=== PATIENT | male | born 1975 | race Caucasian/White ===

== ENCOUNTER 2021-05-16 10:36 | Emergency (ER) | payer MEDICAID, SELFPAY ==
[2021-05-16 11:37] VITALS: BP 133/80; PULSE 57; RESP 18; TEMP 35.5; O2SAT 100; BMI 25.8
--- NOTE | 2021-05-16 12:22 | ED.GENADULT ---
HPI - General Adult General Chief complaint: General Medical Stated complaint: seeking methadone Time Seen by Provider: 05/16/21 12:08 Source: patient History of Present Illness HPI narrative: Patient with a history of opioid use disorder who has been on methadone maintenance for the past 6 months, 30 mg daily, presents requesting a dose of methadone. He had been in [facility] for the past 6 months and was to. Initially planning on staying in the [facility] area but has relocated to [facility]. He is living with a sister. But he did not set up a methadone treatment program prior to moving here on Sunday. His last dose was Sunday. He used heroin via sniffing yesterday as he was feeling significant withdrawal symptoms. He states currently feels only mild symptoms. Some body aches. No nausea. No other significant complaints. Other history significant for hepatitis C. he is trying to get into the [facility] for primary care and medication assisted treatment Related Data Allergies Allergy/AdvReac Type Severity Reaction Status Date / Time Penicillins [PENICILLINS] Allergy Intermediate SWELLING Verified 05/16/21 11:37 Review of Systems Constitutional: Comments: Chills without fever Cardiovascular: Comments: No chest pain Respiratory: Comments: No dyspnea or cough Gastrointestinal: Comments: No nausea vomiting Musculoskeletal: Comments: Some muscle aches PMFSH Past Medical History Medical History (Updated 05/16/21 @ 12:29 by Claudio Umanzor MD) Depression Social History Social History Alcohol intake: never Smoked in Last 30 Days: No Use of substances other than those prescribed or required for medical reasons: No Advance Directives: No Advance Directives Information Provided: No Physical Exam Vital Signs: Vital Signs: Last Vital Signs Temp 96 F L 05/16/21 11:37 Pulse 57 05/16/21 11:37 Resp 18 05/16/21 11:37 BP 133/80 05/16/21 11:37 Pulse Ox 100 05/16/21 11:37 Body Mass Index 25.8 Const: Other: Awake and alert in no acute distress Eyes: Other: Pupils equal round reactive to light, not pinpoint Resp: Other: Clear and equal bilaterally without wheezes rales or rhonchi Cardio: Other: Regular rate and rhythm without murmurs rubs or gallops GI: Other: Soft nontender nondistended Skin: Other: Warm pink and dry without piloerection Neuro: Other: No obvious neuro deficits. Ambulates without difficulty Course Course Course Narrative: Patient with a history of opioid use disorder on medication assisted treatment without a dose for the past 48 hours. Minimal withdrawal symptoms at the moment. Unable to verify his treatment dose, but at 30 mg, it is safe to treat here in the emergency department with follow-up navigation help with the manager of disaster recovery. Discharge Plan Discharge Clinical Impression: Opioid use disorder Patient Disposition: Home, Self-Care Instructions: Opioid Withdrawal (ED), Opioid Use Disorder (ED) Additional Instructions: Be sure to follow-up as scheduled tomorrow
--- NOTE | 2021-05-16 13:12 | MHC.RECOVSUP ---
Recovery Support note: Patient is a 46 year old Burmese speaking male who presented to [facility] ED seeking methadone. Patient reports he recently moved to the area and doesn't have a clinic to go to at this time. Patient states he would like to continue methadone treatment and that he would like to be referred to a local [facility]. Patient accepted information on [facility] in [place]. Recovery Support Team will make this clinic aware of patient. Patient instructed to present to the clinic tomorrow morning at 600 with a last dose letter. Patient acknowledged. This proposal lead writer will provide patient with a last dose letter after he is medicated. Confirmation form completed and sent to pharmacy. Discussed case with Recovery Support Team.
[2021-05-16] MEDS: methADONE HCl 20 MG/2 ML ORAL.CONC 30 MG PO (13:37)
== END 2021-05-16 14:42 | disposition home or self-care (01) ==
LOC: HO.ED 12:54
PROVIDERS: Emergency Provider Emergency Medicine
DX: F11.20 Opioid dependence, uncomplicated (principal)
CPT/HCPCS: 99283; 99284

== ENCOUNTER 2022-04-09 14:53 | Emergency (ER) | payer MEDICAID, SELFPAY ==
[2022-04-09] VITALS (15 sets, daily range): BP systolic 118–222; BP diastolic 69–124; PULSE 76–132; RESP 16–25; O2SAT 95–100; BMI 22.1; BMI 27.6
--- NOTE | ~2022-04-09 | CT_ITS ---
CT head/brain wo IV con CLINICAL INFORMATION: Reason for Exam s/p trauma COMPARISON: No prior CT scan available for comparison. TECHNIQUE: Department standard protocol. This CT examination was performed using dose optimization techniques as appropriate, variously including the following: *Automated exposure control *Adjustment of mA and/or kV according to patient size (this includes techniques or standardized protocols for targeted exams where dose is matched to indication/reason for exam; i.e. extremities or head) *Use of iterative reconstruction technique DLP: 399 mGy-cm FINDINGS: CEREBRAL HEMISPHERES: There is a right parieto-occipital intraparenchymal and subarachnoid hemorrhage. Mild focal mass effect. There are few other foci of small subarachnoid hemorrhage also noticed in the left parietal and right parietal. BRAIN PARENCHYMA: Normal agudelo-white matter differentiation. SUBDURAL SPACE: No bleed. BASAL GANGLIA AND PINEAL GLAND: Unremarkable VENTRICLES: Symmetric and normal in size. CEREBELLUM AND BRAINSTEM: No space-occupying mass, hemorrhage or acute infarct. CEREBELLOPONTINE ANGLES: No lesion found. ORBITS: No intraorbital mass. VESSELS: Unremarkable SKULL BASE: Unremarkable INCLUDED SINUSES AT SKULL BASE: Clear SKULL AND SKIN: Large right extracalvarial subcutaneous hematoma 15 x 2 cm extending along the right frontoparietal occipital skull, no associated skull fracture. CT/CT head/brain wo IV con IMPRESSION: 1. There is intracranial intra-axial 1.5 cm intraparenchymal hemorrhage right parieto-occipital region. Mild focal mass effect. 2. There are multiple areas of subarachnoid hemorrhage right parieto-occipital, anterior parietal, anterior left parietal. 3. Extracalvarial large subcutaneous hematoma along the right frontoparietal occipital 15 x 1.5 cm. Refer still images. This critical result was discussed with Autumn resendiz by telephone at 04/09/2022 3:59 PM and it was ascertained that the content and urgency of the report was understood at the time of direct communication.
--- NOTE | ~2022-04-09 | CT_ITS ---
EXAMINATION: CT CERVICAL SPINE CLINICAL INFORMATION: Reason for Exam s/p trauma COMPARISON: No prior CT available, TECHNIQUE: Computed axial sagittal and coronal images acquired using department's standard protocol. This CT examination was performed using dose optimization techniques as appropriate, variously including the following: *Automated exposure control *Adjustment of mA and/or kV according to patient size (this includes techniques or standardized protocols for targeted exams where dose is matched to indication/reason for exam; i.e. extremities or head) *Use of iterative reconstruction technique CONTRAST: None DLP: 400 mGy-cm FINDINGS: SKULL BASE: Visualized structures at skull base are normal, Included facial sinuses are clear, there is endotracheal tube in place. CERVICAL VERTEBRAE: Seven cervical vertebrae identified maintaining proper height and alignment, DISCS: C1-C2: There is no CT evidence of significant osseous narrowing of the central canal or neural foramen. C2-C3: There is no CT evidence of significant osseous narrowing of the central canal or neural foramen. C3-C4: There is no CT evidence of significant osseous narrowing of the central canal or neural foramen. C4-C5: There is no CT evidence of significant osseous narrowing of the central canal or neural foramen. C5-C6: There is no CT evidence of significant osseous narrowing of the central canal or neural foramen. C6-C7: There is no CT evidence of significant osseous narrowing of the central canal or neural foramen. C7-T1: There is no CT evidence of significant osseous narrowing of the central canal or neural foramen. PARAVERTEBRAL SOFT TISSUE: Paravertebral soft tissues unremarkable. CT/CT cervical spine wo IV con IMPRESSION: No CT evidence of cervical spine fracture or injury. Endotracheal tube in place.
--- NOTE | ~2022-04-09 | CT_ITS ---
EXAMINATION: CT CHEST, ABDOMEN AND PELVIS WITHOUT CONTRAST CLINICAL INFORMATION: Status post trauma with pain COMPARISON: None TECHNIQUE: Multidetector volumetric imaging was performed from the thoracic inlet through the pubic symphysis. Sagittal and coronal reformatted images were obtained on the technologist's workstation. Axial MIP volume rendering provided. This CT examination was performed using dose optimization techniques as appropriate, variously including the following: *Automated exposure control *Adjustment of mA and/or kV according to patient size (this includes techniques or standardized protocols for targeted exams where dose is matched to indication/reason for exam; i.e. extremities or head) *Use of iterative reconstruction technique DLP: 1615 mGy-cm FINDINGS: CHEST: Lungs: Multiple small pulmonary nodules throughout the right lung and left lower lobe, also 6 mm size. Calcified granuloma in the posterior right lower lobe as well. Mild dependent bibasilar atelectasis. Mild upper lung predominant centrilobular and paraseptal emphysema. No pneumothorax. Endotracheal tube is in place. Foamy secretions or aspirated debris in the trachea and left mainstem bronchus. Mediastinum: No cardiomegaly or pericardial effusion. Normal caliber thoracic aorta. No mediastinal hematoma. Nondilated central pulmonary trunk. No mediastinal or hilar lymphadenopathy. Pericardium/Pleura: There is no significant effusion. No pleural mass or thickening. Chest Wall/Axilla: Unremarkable. ABDOMEN/PELVIS: Liver, Gallbladder, Biliary Tree: The liver is normal in size, shape, and attenuation. No focal hepatic lesion or biliary ductal dilatation is present. Status post cholecystectomy. Pancreas: Unremarkable. Spleen: Unremarkable. Adrenal Glands: Unremarkable. Kidneys and Ureters: Punctate 2 mm nonobstructing right midpole renal calculus. No hydronephrosis. No renal lesion. No perinephric stranding or collection. Bladder: Unremarkable. Gastrointestinal Tract: The small and large bowel are unremarkable. The appendix is unremarkable. Ascites or free air. Abdominal Wall: Possible small fat-containing inguinal hernias. Lymphovascular Structures: Lymph nodes: Borderline enlarged portacaval lymph node measuring 0.9 cm in short axis, nonspecific. No lymphadenopathy by size criteria Vascular: Normal caliber abdominal aorta. Mild atherosclerotic vascular calcifications. No retroperitoneal hematoma. Pelvic Viscera: Unremarkable. OSSEOUS STRUCTURES: No acute fracture. No traumatic subluxation the thoracolumbar spine. No suspicious osseous lesion. CT/CT abdomen pelvis wo IV con IMPRESSION: 1. No acute injury identified in the chest, abdomen, or pelvis allowing for lack of intravenous contrast. 2. No intra-abdominal free air or free fluid. 3. No acute fracture identified. 4. Multiple small sub-6 mm bilateral pulmonary nodules. If the patient is high risk for primary pulmonary malignancy, suggest optional low-dose chest CT follow-up in 12 months. If low risk, no further follow-up is required per [employer] guidelines 2017.
[2022-04-09] MEDS: Rocuronium Bromide 50 MG/5 ML VIAL IVPUSH (15:02)
--- NOTE | 2022-04-09 15:11 | PC.NURSE ---
call out to [facility] transfer line @0524 regarding transfer
[2022-04-09] MEDS: Midazolam HCl/PF 2 MG/2 ML VIAL IVPUSH ×4 (15:12→16:59)
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
[2022-04-09] MEDS: Labetalol HCL 100 MG/20 ML VIAL 20 MG IVPUSH (15:13)
[2022-04-09] MEDS: 0.9 % Sodium Chloride 1,000 ML 999 ML IV (15:14)
[2022-04-09 15:17] LABS: Glucose, Whole Blood 183 mg/dL (60-115)
--- NOTE | 2022-04-09 15:19 | PC.NURSE ---
patient going for CT at this time. plan for transfer to [facility]
[2022-04-09] MEDS: levETIRAcetam in NaCl (iso-os) 1,000 MG/100 ML PIGGYBACK 400 MG IV (15:35)
[2022-04-09] MEDS: MannitoL 12.5 GM/50 ML VIAL IV (15:44)
--- NOTE | 2022-04-09 15:46 | PC.NURSE ---
call out to [facility] @[id number] regarding ALS transport to [facility]. Spoke to SHANNA who was able to pass the call to [facility]. [facility] will be here within 40 minutes for ALS transfer
[2022-04-09] MEDS: niCARdipine HCL 25 MG in 0.9 % Sodium Chloride 250 ML 52 MG IVCONT (16:09)
[2022-04-09] MEDS: propofoL 1,000 MG/100 ML VIAL 15.3 MG IVCONT (16:13)
[2022-04-09 16:28] LABS: Basophils Absolute Auto 0.1 X10*3/uL (0.0-0.2); Basophils Percent Auto 0.4 % (0-2); Eosinophils Absolute Auto 0.1 X10*3/uL (0.0-0.4); Eosinophils Percent Auto 0.3 % (0-4); Hematocrit 38.7 % (42.0-52.0); Hemoglobin 12.7 g/dl (14.0-18.0); Imm Gran Abs Auto 0.09 X10*3/uL (0.00-0.03); Imm Gran Pct Auto 0.5 % (0.0-0.4); Lymphocytes Absolute Auto 1.2 X10*3/uL (1.2-4.9); Lymphocytes Percent Auto 6.5 % (20-40); MANUAL DIFF FLAG NO; Mean Corpuscular HGB Conc 32.8 g/dl (31.0-36.0); Mean Corpuscular Hemoglobin 29.5 pg (27.0-33.0); Mean Platelet Volume 12.4 fL (9.4-12.4); Monocytes Percent Auto 5.5 % (2-11); Neutrophils Absolute Auto 16.2 x10*3/uL (2.0-8.3); Neutrophils Percent Auto 86.8 % (45-73); Platelet Count 180 X10*3/uL (160-400); Red Cell Distribution Width 13.8 % (11.0-16.0); White Blood Count 18.7 X10*3/uL (4.8-10.8)
[2022-04-09 16:37] LABS: INTERNATIONAL NORM RATIO 1.1 (0.9-1.1); Prothrombin Time 12.1 SEC (10.0-13.1)
[2022-04-09 16:40] LABS: Partial Thromboplastin Time 28.6 SEC (26.0-36.4)
[2022-04-09 16:46] LABS: Alanine Aminotransferase 34 U/L (0-40); Albumin Level 3.5 g/dL (3.5-5.0); Alkaline Phosphatase 57 U/L (39-117); Anion Gap 20 (12-20); Aspartate Amino Transferase 31 U/L (5-37); Bilirubin Total 0.3 mg/dL (0.0-1.0); Blood Urea Nitrogen 16 mg/dL (9-16); Carbon Dioxide 18 mmol/L (22-29); Chloride 102 mmol/L (96-108); Estimated Glomerular Filt Rate > 60; Glucose Random 184 mg/dL (60-115); Potassium 5.1 mmol/L (3.3-5.1); Sodium 135 mmol/L (135-145); Total Protein 6.3 g/dL (6.5-8.0)
[2022-04-09 17:01] LABS: COVID-19 Test Negative (Negative); IDNOW Serial# 9DB6401D
--- NOTE | 2022-04-09 17:11 | PC.NURSE ---
RN-RN report called into [facility]
--- NOTE | 2022-04-09 17:38 | PC.NURSE ---
called the pt's sister to see if by any chance she could package pick up the pt's belongings that got left behind, pt got transferred to [facility]
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
== END 2022-04-09 19:27 | disposition short-term general hospital (02) ==
PROVIDERS: Emergency Provider Internal Medicine
DX: R56.9 Unspecified convulsions (principal); M54.6 Pain in thoracic spine; M54.2 Cervicalgia; R07.89 Other chest pain; R40.2430 Glasgow coma scale score 3-8, unspecified time; R10.9 Unspecified abdominal pain; R51.9 Headache, unspecified; Z20.822 Contact with and (suspected) exposure to COVID-19; Z79.899 Other long term (current) drug therapy
CPT/HCPCS: 31500; 36415; 36556; 70450; 71250; 72125; 74176; 80053; 82947; 85025; 85610; 85730; 87635; 94002; 96365; 96375; 96376; 99285; J1953; J2150; J2250